=== PATIENT | female | born 1945 | race Caucasian/White ===

== ENCOUNTER → 2019-01-04 | Outpatient (RCR) | payer MEDICARE, BC ==
[~2019-01-04] VITALS: Ht 167.6 cm; Wt 67.1 kg
== END | disposition home or self-care (01) ==
LOC: WCC 14:34
DX: L97.819 Non-pressure chronic ulcer of other part of right lower leg with unspecified severity (principal); Z79.899 Other long term (current) drug therapy; Z90.89 Acquired absence of other organs; I10 Essential (primary) hypertension; Z86.73 Personal history of transient ischemic attack (TIA), and cerebral infarction without residual deficits; Z86.19 Personal history of other infectious and parasitic diseases; Z86.718 Personal history of other venous thrombosis and embolism; I73.00 Raynaud's syndrome without gangrene; L03.115 Cellulitis of right lower limb; Z88.8 Allergy status to other drugs, medicaments and biological substances; Z79.82 Long term (current) use of aspirin
CPT/HCPCS: G0463

== ENCOUNTER 2019-01-05 08:58 | Outpatient (RCR) | payer MEDICARE, BC | END 2019-02-04 | disposition home or self-care (01) | LOC: WCC 08:58 | DX: L97.213 Non-pressure chronic ulcer of right calf with necrosis of muscle (principal); I74.3 Embolism and thrombosis of arteries of the lower extremities; Z90.89 Acquired absence of other organs; I10 Essential (primary) hypertension; Z86.19 Personal history of other infectious and parasitic diseases; Z86.73 Personal history of transient ischemic attack (TIA), and cerebral infarction without residual deficits; Z86.718 Personal history of other venous thrombosis and embolism; Z79.82 Long term (current) use of aspirin; Z79.899 Other long term (current) drug therapy; Z88.6 Allergy status to analgesic agent | CPT/HCPCS: G0463 ==